=== PATIENT | female | born 1970 | race Caucasian/White ===

== ENCOUNTER 2019-01-21 00:09 | Emergency (ER) | payer OTHER ==
[2019-01-21] MEDS ORDERED: Morphine 4 MG/ML VIAL ONE (00:33)
--- NOTE | 2019-01-21 07:49 | ULT ---
ULTRASOUND WITH DOPPLER DUPLEX VENOUS LOWER EXTREMITY LEFT: CPT: 54372 ICD-10-PCS: B54D INDICATION: Pain of left lower extremity. TECHNIQUE: Color flow Doppler, spectral waveform analysis of pulsed Doppler, and lopez-scale imaging with anitra viv and augmentation, were used to evaluate the left common femoral, femoral, popliteal, posterior t ibial, and superficial femoral, veins; and the proximal portions of the profunda femoral and greater saphenous, veins. FINDINGS: There is appropriate compressibility and flow within the imaged deep vein system of the left lower ex tremity. IMPRESSION: No deep venous thrombosis. POS: [facility]
== END 2019-01-21 04:01 | disposition home or self-care (01) ==
LOC: ERS 00:09
DX: M79.605 Pain in left leg (principal); E78.5 Hyperlipidemia, unspecified; F41.9 Anxiety disorder, unspecified; F17.210 Nicotine dependence, cigarettes, uncomplicated; Z79.899 Other long term (current) drug therapy
CPT/HCPCS: 96374; J2270

== ENCOUNTER 2021-09-03 19:54 | Inpatient (IN) | payer OTHER ==
[2021-09-04] MEDS ORDERED: Ondansetron PF 4 MG/2 ML Vial IVP PRN (01:26)
[2021-09-04] MEDS ORDERED: Bisacodyl 5 MG TAB PO PRN (01:26)
[2021-09-04] MEDS ORDERED: Guaifenesin DM 100-10/5 ML UDCUP PO PRN (01:26)
[2021-09-04] MEDS ORDERED: Senokot S 8.6-50 MG TAB PO PRN (01:26)
[2021-09-04] MEDS ORDERED: Nitroglycerin 0.4 MG TAB (25 Tab Bottle) SL PRN (01:31)
[2021-09-04] MEDS ORDERED: hydrALAZINE 20 MG/ML VIAL SLOW IVP PRN (01:31)
[2021-09-04] MEDS ORDERED: Melatonin 3 MG TAB PO PRN (01:31)
[2021-09-04] MEDS: Sodium Chloride 0.9% 1,000 ML IV SCH ×2 (02:04→02:19)
[2021-09-04] MEDS: Nicotine 21 MG PATCH TD SCH (02:07)
[2021-09-04] MEDS ORDERED: clonazePAM 1 MG TAB PO PRN (02:39)
[2021-09-04] MEDS: methylPREDNISolone Sod Succ 40 MG VIAL IVP SCH ×4 (05:05→23:18)
[2021-09-04 06:38] LABS: Hemoglobin 15.2 g/dL (12.0-16.0); Mean Corpuscular HGB CONC 33.5 g/dL (32.0-36.0); Mean Corpuscular Hemoglobin 34.3 pg (27.0-31.0); Mean Platelet Volume 7.6 fL (7.4-10.4); Platelet Count 189 thou/uL (130-400); RBC Distribution Width 11.5 % (11.5-14.5); Red Blood Cell (RBC) Count 4.44 mill/uL (4.20-5.40); White Blood Cell (WBC) Count 2.6 thou/uL (4.8-10.8)
[2021-09-04 06:53] LABS: Band 3 % (5-11); Lymphocytes 26 % (21-51); MDiff Complete? YES; Monocytes 2 % (0-10); Neutrophil 68 % (42-75); Reactive Lymphocytes 1 % (0-10)
[2021-09-04 06:56] LABS: ALT (SGPT) 18 U/L (8-55); AST (SGOT) 24 U/L (5-34); Albumin 3.7 g/dL (3.5-5.0); Alkaline Phosphatase 60 U/L (40-110); Anion Gap 18 mmol/L (10-20); BUN (Urea Nitrogen) 14 mg/dL (9.8-20.1); Bilirubin, Total 0.4 mg/dL (0.2-1.2); Calc. Creatinine Clearance 100 mL/min (70-130); Calcium 9.7 mg/dL (7.8-10.44); Carbon Dioxide 33 mmol/L (22-29); Chloride 91 mmol/L (98-107); Globulin 3.2 g/dL (2.4-3.5); Glucose 144 mg/dL (70-105); Potassium 3.6 mmol/L (3.5-5.1); Protein, Total 6.9 g/dL (6.0-8.3); Sodium 138 mmol/L (136-145)
[2021-09-04] MEDS: Ipratropium/Albuterol Sulfate 4 GM AER IH SCH ×5 (07:31→23:08)
[2021-09-04] MEDS: Famotidine/PF 20 mg/2ml Vial SLOW IVP SCH ×2 (09:44→20:30)
[2021-09-04] MEDS ORDERED: Albuterol Sulfate 2.5 mg/3 ml Neb NEB PRN (10:49)
[2021-09-04] MEDS: HYDROcodone/Acetaminophen 10/325 mg Tablet PO PRN ×2 (11:27→17:32)
[2021-09-04 12:21] LABS: Troponin I 0.125 ng/mL (< 0.028)
[2021-09-04 12:30] LABS: SARS-CoV-2 PCR by NAA Not Detected (NotDetected)
[2021-09-04] MEDS: Enoxaparin Sodium 80 MG/0.8 ML SYRINGE SC SCH ×2 (14:18→20:28)
[2021-09-04] MEDS: Gabapentin 100 MG CAP PO SCH ×2 (15:25→20:28)
[2021-09-05] MEDS: Nicotine 21 MG PATCH TD SCH (02:09)
[2021-09-05] MEDS: Ipratropium/Albuterol Sulfate 4 GM AER IH SCH ×4 (03:24→14:22)
[2021-09-05] MEDS: HYDROcodone/Acetaminophen 10/325 mg Tablet PO PRN ×2 (04:01→10:07)
[2021-09-05] MEDS: methylPREDNISolone Sod Succ 40 MG VIAL IVP SCH ×2 (05:28→11:23)
[2021-09-05] MEDS: Gabapentin 100 MG CAP PO SCH ×2 (08:40→14:36)
[2021-09-05] MEDS: Enoxaparin Sodium 80 MG/0.8 ML SYRINGE SC SCH (08:40)
[2021-09-05] MEDS: Famotidine/PF 20 mg/2ml Vial SLOW IVP SCH (08:41)
[2021-09-05] MEDS ORDERED: Iopamidol-370 76% 500 ML 1 ML ONE (10:08)
[2021-09-05] MEDS ORDERED: methylPREDNISolone Sod Succ 40 MG VIAL IVP SCH (13:30)
[2021-09-05 14:48] VITALS: BMI 22.4
[2021-09-05 16:15] VITALS: BP 105/78; TEMP 98.6
== END 2021-09-05 17:34 | disposition left against medical advice (07) | DRG 189 ==
LOC: INTOOBSV 19:54 → OBSVTOIN 19:54 → 2NO 19:54
PROVIDERS: ADMIT Student in an Organized Health Care Education/Training Program; ATTEND Internal Medicine
DX: J96.01 Acute respiratory failure with hypoxia (principal); J44.1 Chronic obstructive pulmonary disease with (acute) exacerbation; Z20.822 Contact with and (suspected) exposure to COVID-19; I50.9 Heart failure, unspecified; G89.29 Other chronic pain; G43.909 Migraine, unspecified, not intractable, without status migrainosus; M54.9 Dorsalgia, unspecified; F17.210 Nicotine dependence, cigarettes, uncomplicated; Z88.8 Allergy status to other drugs, medicaments and biological substances; Z98.890 Other specified postprocedural states
CPT/HCPCS: 36415; 71046; 71275; 80053; 83880; 84484; 85025; 87804; 93306; 96374; 96376; G0378; J1650; J1956; J2920; J7050; Q9967; S0028; U0003; U0005